=== PATIENT | male | born 1985 | race American Indian/Alaskan Native ===

== ENCOUNTER 2017-05-30 12:33 | Emergency (ER) | payer SELFPAY ==
[2017-05-30 12:49] VITALS: BP 108/73
[2017-05-30] MEDS ORDERED: NORCO 5/325 PO ONE (13:25)
[2017-05-30] MEDS ORDERED: MOTRIN PO ONE (13:25)
--- NOTE | 2017-05-30 13:25 | Emergency Department Report ---
ED ENT HPI - General Chief complaint: Dental/Oral Stated complaint: MOUTH ABSCESS Source: patient Mode of arrival: Ambulatory Limitations: No Limitations - History of Present Illness Initial comments: 32 year old male presents to ED with left lower tooth pain x2 weeks. patient is stable, neurologically intact and in no acute distress. MD complaint: tooth pain -: Gradual, week(s) (2) 1 - tooth pain/cavity Severity: mild Quality: aching Consistency: constant Improves with: none Worsens with: eating Context- Dental: history of dental caries, poor dental care Associated Symptoms: gum swelling, toothache. denies: fever, cough, pain with swallowing, sore throat - Related Data Previous Rx's Medication Instructions Recorded Last Taken Type HYDROcodone/APAP 7.5-325 [[place] 1 each PO Q6HR PRN #14 tablet 08/21/13 Unknown Rx 7.5-325 mg TAB] Ibuprofen [Motrin] 800 mg PO TID PRN #20 tablet 08/21/13 Unknown Rx Sulfamethoxazole/Trimethoprim 1 each PO BID #20 tablet 08/21/13 Unknown Rx [Bactrim Ds] Amoxicillin 500 mg PO BID #14 capsule 05/30/17 Unknown Rx Naproxen [Naprosyn] 500 mg PO BID #14 tablet 05/30/17 Unknown Rx Allergies Allergy/AdvReac Type Severity Reaction Status Date / Time No Known Allergies Allergy Verified 08/21/13 01:23 ED Dental HPI - General Chief complaint: Dental/Oral Stated complaint: MOUTH ABSCESS Source: patient Mode of arrival: Ambulatory Limitations: No Limitations - Related Data Previous Rx's Medication Instructions Recorded Last Taken Type HYDROcodone/APAP 7.5-325 [[place] 1 each PO Q6HR PRN #14 tablet 08/21/13 Unknown Rx 7.5-325 mg TAB] Ibuprofen [Motrin] 800 mg PO TID PRN #20 tablet 08/21/13 Unknown Rx Sulfamethoxazole/Trimethoprim 1 each PO BID #20 tablet 08/21/13 Unknown Rx [Bactrim Ds] Amoxicillin 500 mg PO BID #14 capsule 05/30/17 Unknown Rx Naproxen [Naprosyn] 500 mg PO BID #14 tablet 05/30/17 Unknown Rx Allergies Allergy/AdvReac Type Severity Reaction Status Date / Time No Known Allergies Allergy Verified 08/21/13 01:23 ED Review of Systems ROS: Stated complaint: MOUTH ABSCESS Other details as noted in HPI Constitutional: denies: chills, fever Eyes: denies: eye pain, eye discharge, vision change ENT: dental pain. denies: ear pain, throat pain Respiratory: denies: cough, shortness of breath, wheezing Cardiovascular: denies: chest pain, palpitations Endocrine: no symptoms reported Gastrointestinal: denies: abdominal pain, nausea, diarrhea Genitourinary: denies: urgency, dysuria Musculoskeletal: denies: back pain, joint swelling, arthralgia Skin: denies: rash, lesions Neurological: denies: headache, weakness, paresthesias Psychiatric: denies: anxiety, depression Hematological/Lymphatic: denies: easy bleeding, easy bruising ED Past Medical Hx - Past Medical History Previous Medical History?: No - Surgical History Past Surgical History?: No - Social History Smoking Status: Never Smoker Substance Use Type: None - Medications Home Medications: Home Medications Medication Instructions Recorded Confirmed Last Taken Type HYDROcodone/APAP 7.5-325 [[place] 1 each PO Q6HR PRN #14 tablet 08/21/13 Unknown Rx 7.5-325 mg TAB] Ibuprofen [Motrin] 800 mg PO TID PRN #20 tablet 08/21/13 Unknown Rx Sulfamethoxazole/Trimethoprim 1 each PO BID #20 tablet 08/21/13 Unknown Rx [Bactrim Ds] Amoxicillin 500 mg PO BID #14 capsule 05/30/17 Unknown Rx Naproxen [Naprosyn] 500 mg PO BID #14 tablet 05/30/17 Unknown Rx ED Physical Exam - General Limitations: No Limitations General appearance: alert, in no apparent distress - Head Head exam: Present: atraumatic, normocephalic - Eye Eye exam: Present: normal appearance - ENT ENT exam: Present: mucous membranes moist - Expanded ENT Exam Expanded Ear exam: Present: normal external inspection Mouth exam: Present: normal external inspection Teeth exam: Present: dental caries, gingival enlargement Throat exam: Positive: normal inspection - Neck Neck exam: Present: normal inspection, full ROM - Respiratory Respiratory exam: Present: normal lung sounds bilaterally. Absent: respiratory distress - Cardiovascular Cardiovascular Exam: Present: regular rate, normal rhythm. Absent: systolic murmur, diastolic murmur, rubs, gallop - GI/Abdominal GI/Abdominal exam: Present: soft, normal bowel sounds - Rectal Rectal exam: Present: deferred - Extremities Exam Extremities exam: Present: normal inspection - Back Exam Back exam: Present: normal inspection - Neurological Exam Neurological exam: Present: alert, oriented X3, normal gait - Psychiatric Psychiatric exam: Present: normal affect, normal mood - Skin Skin exam: Present: warm, dry, intact, normal color. Absent: rash ED Course Vital Signs 05/30/17 12:47 Temperature 98.9 F Pulse Rate 88 Respiratory 18 Rate Blood Pressure 108/73 O2 Sat by Pulse 100 Oximetry ED Medical Decision Making - Medical Decision Making 32 year old male presents to ED with left lower side toothache x2 weeks. no abscess present on examination today. patient agrees and understands to follow up with dentist within 2-3 days. patient is stable, neurologically intact and in no acute distress. Critical care attestation.: If time is entered above; I have spent that time in minutes in the direct care of this critically ill patient, excluding procedure time. ED Disposition Clinical Impression: Dental caries, Toothache, Gingivitis Disposition: [id number] TO HOME OR SELFCARE Is pt being admited?: No Does the pt Need Aspirin: No Condition: Stable Instructions: Dental Caries (ED), Toothache (ED) Prescriptions: Amoxicillin 500 mg PO BID #14 capsule Naproxen [Naprosyn] 500 mg PO BID #14 tablet Referrals: [facility] [Outside] - 2-3 Days Forms: Work/School Release Form(ED)
== END 2017-05-30 13:59 | disposition home or self-care (01) ==
LOC: ED 12:33
DX: K05.10 Chronic gingivitis, plaque induced (principal)
CPT/HCPCS: 99282

== ENCOUNTER 2017-10-28 10:30 | Emergency (ER) | payer OTHER ==
[2017-10-28 10:47] VITALS: BP 130/91
== END 2017-10-28 18:44 | disposition left against medical advice (07) ==
LOC: ED 10:30
DX: M54.9 Dorsalgia, unspecified (principal); Z53.21 Procedure and treatment not carried out due to patient leaving prior to being seen by health care provider